=== PATIENT | male | born 1955 | race Caucasian/White ===

== ENCOUNTER 2020-02-20 07:13 | Day surgery (SDC) | payer MEDICARE ==
[~2020-02-20] VITALS: Ht 182.9 cm; Wt 90.7 kg
--- NOTE | 2020-02-20 06:46 | PREOP HP ---
DATE OF SERVICE: 02/20/2020 PREOPERATIVE HISTORY AND PHYSICAL DATE OF SURGERY: 02/20/2020 HISTORY OF PRESENT ILLNESS: The patient is a pleasant 64-year-old who is having difficulty with low back pain and pain that radiates primarily to his left buttock, posterior thigh and leg. He notes numbness in his left foot. This has been a problem for many years, but became severe a few months ago. He rates his pain as a 10/10 with walking. Lying on his left side helps him and he says that he has laid on his left hip so much that he began to notice skin breakdown. He says when he takes Gallitzin and morphine, it can help him some. He has had 3 epidural steroid injections since October without benefit. He does not notice numbness or weakness, only pain. PAST MEDICAL HISTORY: Gout and hypertension. PAST SURGICAL HISTORY: He denies any past surgical history. FAMILY HISTORY: He has a family history of cancer. SOCIAL HISTORY: He is employed as a welder assistant. He is . Denies substance abuse. Denies tobacco use. Former smoker. ALLERGIES: PENICILLIN. CURRENT MEDICATIONS: Gallitzin, morphine, gabapentin, chlorzoxazone, losartan, potassium, metoprolol, amlodipine, hydrochloric acid, fenofibrate and ibuprofen. REVIEW OF SYSTEMS: A 12-point review of systems was obtained and is noncontributory except that mentioned above. PHYSICAL EXAMINATION: NEUROSURGERY EXAMINATION: GENERAL APPEARANCE: Alert, pleasant, no acute distress. HEAD: Normocephalic and atraumatic. SKIN: Warm and dry. MUSCULOSKELETAL: Lumbar paraspinal muscle bulk is normal, restricted range of motion of the lumbar spine, [id number] tenderness of the lumbar spine with palpation, normal range of motion of the lower extremities bilaterally. EXTREMITIES: No clubbing, cyanosis or edema. NEUROLOGIC: Alert and oriented x 3. Normal recent and remote memory. Strength 5/5 in bilateral lower extremities. Sensory is intact to light touch in bilateral lower extremities. Reflexes are present and symmetric in the lower extremities bilaterally. Markedly positive straight leg raising on the left, negative straight leg raising on the right. He is using a walker to help with gait. IMAGING DATA: I reviewed a recent lumbar MRI scan. There is disk bulging and lateral stenosis at L3-L4 and L4-L5. At L5-S1, there is a large left disc herniation, which is posteriorly deviating and compressing the left S1 nerve root. ASSESSMENT/ PLAN: The patient has a large HNP at L5-S1 on the left, which is interfering with all of his activities. I explained to him that surgery would not help him with many of his back issues, but should certainly help him with his severe left-sided back, buttock, and posterior thigh and leg pain. This is by far the most significance of his pain. I outlined the surgery and the risks and expected postoperative course. He would like to go ahead. We will make the arrangements. CARISSA GARCES MD DR: RONALD/dionte JOB#: [id number] / [id number] MIGUE
[~2020-02-20 07:13] MED LIST: AMLO10TA8 PO; BACITRACIN 50,000 UNIT in IV NORMAL SALINE 1000ML BAG 1,000 ML IRR ONE; BUPIVACAINE-EPI 0.5%-1:200000 MPF 30 ML VIAL. ONE; FENO145T3 PO; GABA600T7 PO; GELATIN SPONGE SIZE 100. ONE; HYDROmorphone 2 MG/ML VIAL IV PRN; IV RINGERS,LACTATED 1000ML 1,000 ML IV SCH; KETOROLAC 60 MG/2 ML VIAL. ONE; LIDOCAINE 1% PF 2 ML VIAL. ID PRN; LOSA100T14 PO; METO100T7 PO; MORPHINE SULFATE 2 MG/ML VIAL. IV PRN; ONDANSETRON PF 4 MG/2 ML VIAL. IV PRN; OXYC1TAB15 PO; PROCHLORPERAZINE 10 MG/2 ML VIAL. IV PRN; THROMBIN TOPICAL 20,000 UNIT SPRAY.SYRN KIT TP ONE; fentaNYL PF VIAL 100 MCG/2 ML VIAL IV PRN
[2020-02-20] MEDS ORDERED: REMIFENTANIL 2 MG VIAL. IV ONE (07:37)
[2020-02-20] MEDS ORDERED: ROCURONIUM 50 MG/5 ML VIAL. ONE (07:37)
[2020-02-20] MEDS ORDERED: fentaNYL PF VIAL 100 MCG/2 ML VIAL ONE ×2 (07:37→11:28)
[2020-02-20] MEDS ORDERED: PROPOFOL 10 MG/ML (20ML) VIAL. IV ONE (07:37)
[2020-02-20] MEDS ORDERED: PROPOFOL 50 ML IV ONE (07:37)
[2020-02-20] MEDS ORDERED: SUCCINYLCHOLINE 200 MG/10 ML VIAL. ONE (07:37)
[2020-02-20] MEDS ORDERED: LIDOCAINE 2% PF 5 ML VIAL. ONE (07:37)
[2020-02-20] MEDS ORDERED: 0.9 % SODIUM CHLORIDE 20 ML VIAL. IJ ONE (07:38)
[2020-02-20] MEDS ORDERED: PHENYLEPHRINE in 0.9% NACL PF 1 MG/10 ML SYRINGE. IV ONE (09:27)
[2020-02-20] MEDS ORDERED: DESFLURANE 61 TO 120 MINUTES IH ONE (09:33)
[2020-02-20] MEDS ORDERED: DOCU-109 PO (09:34)
[2020-02-20] MEDS ORDERED: METH-38 PO (09:34)
--- NOTE | 2020-02-20 09:37 | DISCH ---
DISCHARGE INSTRUCTIONS Condition on Discharge Condition on Discharge: Stable Activity After Discharge Activity Instructions for Disc: Resume previous activity, Activity as tolerated Other activity instructions: no driving for a week Lifting Instructions after Dis: No heavy lifting, No pulling or pushing, Do not lift >10 pounds Diet after Discharge Additional Diet Restrictions: resume home diet Wound Incision Care Wound/Incision Care: Ice to area for comfort, Other, see below Other wound/incision instructi: may remove dressing in 48 hours if dry then may shower, no soaking Contacting the after DC Call your doctor for: Concerns you may have Follow-Up Follow up with: Dr. Garces's nurse in 2 weeks [phone] CARISSA GARCES MD Feb 20, 2020 09:37
[2020-02-20] MEDS ORDERED: ePHEDrine PF IN SALINE 50 MG/10 ML SYRINGE. IV ONE (10:24)
[2020-02-20] MEDS ORDERED: GLYCOPYRROLATE 1 MG/5 ML VIAL. ONE (10:24)
[2020-02-20] MEDS: fentaNYL PF VIAL 100 MCG/2 ML VIAL IV PRN ×2 (11:09→11:43)
[2020-02-20] MEDS ORDERED: oxyCODONE/APAP 5/325 1 TAB TABLET PO ONE ×2 (11:30)
--- NOTE | 2020-02-20 11:51 | OP ---
DATE OF SURGERY: 02/20/2020 PREOPERATIVE DIAGNOSES: Herniated lumbar disc, L5-S1 left with left lumbar radiculopathy. POSTOPERATIVE DIAGNOSES: Herniated lumbar disc, L5-S1 left with left lumbar radiculopathy. OPERATION PERFORMED: Hemilaminotomy and microdiscectomy L5-S1, left. The operation was done with EMG monitoring, SSEP monitoring, fluoroscopy, microscopic dissection. SURGEON: Jonathan Garces M.D. TAPE FOLDING MACHINE OPERATOR: YAJAIRA Zarco assisted with the surgery. She assisted with the exposure, the microdiscectomy as well as the closure. OPERATIVE INDICATIONS: The patient is a pleasant 64-year-old who developed intractable back and left leg pain, which failed conservative measures. He had a large herniated disc at L5-S1 on the left with compression of the left S1 nerve root. I recommended lumbar microsurgery. I spoke with him about the surgery, the risks, technique and the expected postoperative course and he wished to go ahead. DESCRIPTION OF PROCEDURE: Following general endotracheal anesthesia, the patient was positioned prone on the Zenon table. Lumbar region prepped and draped in standard fashion. LLUVIA hose and AV impulse boots were applied for DVT prophylaxis. The microscope was draped. Fluoroscopy was draped and brought into field. Monitoring was established. Ancef 2 grams was given less than 1 hour prior to initiation of the surgery. Using fluoroscopic guidance, a midline posterior incision was made, dissected down through subcutaneous tissue, reflected the paraspinal muscles, placed a [place]ow micro disc retractor, brought in the microscope. Using the high speed air drill, I burred down a generous hemilaminotomy and then trimmed away thickened ligamentum flavum, exposing the exiting S1 root. I gently retracted it medially and beneath the root, there was a large subligamentous disc herniation. I gently opened the ligament with a #11 blade and removed the herniated portion, there was an opening into the disc space. I followed this down with the Wilfredo pituitary and performed a discectomy with pituitary rongeurs. I then irrigated copiously, explored carefully. There were no retained fragments. The root was now quite free. I closed the wound with absorbable suture and skin was closed with 4-0 subcuticular stitch, after copious irrigation and excellent hemostasis. I was quite pleased with the surgery. JONATHAN Liss GARCES MD DR: RONALD/dionte JOB#: [id number] / [id number] MIGUE
[2020-02-20 11:55] VITALS: BP 134/78
--- NOTE | 2020-02-23 16:06 | PATHOLOGY ---
[facility] Accession Number: [id number] . 01 Material submitted: . vertebral column - LUMBAR DECOMPRESSION AND DISC . 01 Clinical history: . Lumbar herniated disc with radiculopathy . 02 Diagnosis: Segments of fibrocartilaginous and fibroadipose tissue and bone, lumbar decompression and disc: - Degenerative changes of fibrocartilaginous tissue. ([facility] 02/23/2020) [facility] 02/23/2020 1403 Local . 02 Comment: There is no evidence of an acute inflammatory process or malignancy. ([facility] 02/23/2020) . 02 Electronically signed: . Ramsey Adan MD, Pathologist NPI- [id number] . 01 Gross description: . The specimen is received in formalin, labeled "Rajat Licona, lumbar decompression and disc". Received are multiple segments of pink-martins, gritty tissue admixed with small fragments of bone measuring 3.8 x 3.5 x 0.7 cm in aggregate dimensions. The specimen is submitted representatively in cassette A1, following decalcification. ([facility]; 02/20/2020) QA/QA 02/20/2020 1611 Local . 02 Pathologist provided ICD-10: M99.73, M54.10 . 02 CPT . 188871, 354604 Specimen Comment: A courtesy copy of this report has been sent to [phone] Specimen Comment: [id number] Specimen Comment: Report sent to / DR TERRELL Performed at: 01 [facility] [address], [place], [place] [id number] MD Julián Elise MD Phone: [phone] Performed at: 02 [facility] [address] [place], [place] [id number] MD Ramsey Adan MD Phone: [phone]
== END 2020-02-20 13:06 | disposition home or self-care (01) ==
LOC: SURG 07:13
PROVIDERS: ATTEND Neurological Surgery
DX: M51.16 Intervertebral disc disorders with radiculopathy, lumbar region (principal); Z88.0 Allergy status to penicillin; Z87.891 Personal history of nicotine dependence; Z79.899 Other long term (current) drug therapy
CPT/HCPCS: 63030; 88304; 88311; 97161; J0330; J0696; J1885; J2370; J2704; J3010; J3490; J7030; J7120; 76000; J0690

== ENCOUNTER 2020-04-22 08:37 | Day surgery (SDC) | payer MEDICARE ==
[~2020-04-22] VITALS: Ht 182.9 cm; Wt 79.4 kg
[~2020-04-22 08:37] MED LIST changes: +ASPI-630 PO; +DOCU-109 PO; +IBUP-1060 PO; +METH-38 PO
[2020-04-22] MEDS ORDERED: MIDAZOLAM HCL/PF 2 MG/2 ML VIAL. ONE (09:38)
[2020-04-22] MEDS ORDERED: fentaNYL PF VIAL 100 MCG/2 ML VIAL ONE ×2 (09:38→14:26)
[2020-04-22] MEDS ORDERED: LIDOCAINE 2% PF 5 ML VIAL. ONE (09:39)
[2020-04-22] MEDS ORDERED: DEXAMETHASONE SOD PHOS 20 MG/5 ML VIAL. ONE (09:39)
[2020-04-22] MEDS ORDERED: PROPOFOL 50 ML IV ONE ×2 (09:39→12:42)
[2020-04-22] MEDS ORDERED: REMIFENTANIL 2 MG VIAL. IV ONE (09:39)
[2020-04-22] MEDS ORDERED: PROPOFOL 10 MG/ML (20ML) VIAL. IV ONE (09:39)
[2020-04-22] MEDS ORDERED: ONDANSETRON PF 4 MG/2 ML VIAL. ONE (09:40)
[2020-04-22] MEDS ORDERED: ROCURONIUM 50 MG/5 ML VIAL. ONE (09:46)
[2020-04-22] MEDS ORDERED: DESFLURANE > 120 MINUTES IH ONE ×2 (09:47→11:49)
[2020-04-22] MEDS ORDERED: ePHEDrine PF IN SALINE 50 MG/10 ML SYRINGE. IV ONE (12:07)
[2020-04-22] MEDS ORDERED: NEOSTIGMINE METHYLSULFATE 5 MG/5 ML SYRINGE. ONE (13:58)
[2020-04-22] MEDS ORDERED: GLYCOPYRROLATE 1 MG/5 ML VIAL. ONE (13:58)
[2020-04-22] MEDS ORDERED: METH-38 PO (14:07)
--- NOTE | 2020-04-22 14:10 | DISCH ---
DISCHARGE INSTRUCTIONS Condition on Discharge Condition on Discharge: Stable Activity After Discharge Activity Instructions for Disc: Resume previous activity, Activity as tolerated Bathing Instructions: Shower-keep dressing dry, No Tub Bath until see Lifting Instructions after Dis: No heavy lifting, No pulling or pushing, Do not lift >10 pounds Diet after Discharge Additional Diet Restrictions: resume home diet Wound Incision Care Wound/Incision Care: Ice to area for comfort, Other, see below Other wound/incision instructi: may remove dressing in 48 hours if dry then may shower, no soaking Contacting the after DC Call your doctor for: Concerns you may have Follow-Up Follow up with: Dr. Garces's nurse in 2 weeks [phone] CARISSA GARCES MD Apr 22, 2020 14:10
[2020-04-22] MEDS: fentaNYL PF VIAL 100 MCG/2 ML VIAL IV PRN ×2 (14:30→14:51)
[2020-04-22] MEDS ORDERED: oxyCODONE/APAP 5/325 1 TAB TABLET PO ONE ×2 (15:00)
[2020-04-22 15:10] VITALS: BP 137/55
--- NOTE | 2020-04-22 15:31 | OP ---
DATE OF SURGERY: 04/22/2020 PREOPERATIVE DIAGNOSIS: Herniated lumbar disc, recurrent, L5-S1, left. POSTOPERATIVE DIAGNOSIS: Herniated lumbar disc, recurrent, L5-S1, left. OPERATIONS PERFORMED: Hemilaminotomy and microdiscectomy, reoperation, L5-S1, left. The operation was done with EMG monitoring, SSEP monitoring, fluoroscopy and microscopic dissection. FINDINGS: Sequestered disc fragment inferiorly placed, compressing the left S1 nerve root. SURGEON: Jonathan Garces M.D. UNIVERSITY ARCHIVIST: YAJAIRA Zarco, who assisted with all aspects of the surgery. OPERATIVE INDICATIONS: The patient is a pleasant 64-year-old man who in the recent past underwent lumbar microsurgery and initially did well, but then developed recurrent pain. On imaging studies, there was a new inferior disc herniation emanating from the L5-S1 disc space on the left and I recommended lumbar microsurgery. I spoke with him about the surgery, the risks, technique and expected postoperative course and he wished for me to go ahead. DESCRIPTION OF PROCEDURE: Following general endotracheal anesthesia, the patient was positioned prone on the Zenon table. Lumbar region was prepped and draped in standard fashion. LLUVIA hose and AV impulse boots were applied for DVT prophylaxis. The microscope was draped. Fluoroscopy was draped and brought into the field. Monitoring was established. Ancef 2 grams was given less than 1 hour prior to initiation of the surgery. Using fluoroscopic guidance, a midline incision was made directly over the L5-S1 interspace. I dissected down through the skin and subcutaneous tissue, reflected the paraspinal muscles and placed a microdisk retractor. I brought in the microscope and visualized the edges of the previous laminotomy. I continued this superiorly, laterally and inferiorly. I trimmed away thickened bone opening up the lateral recess further and I followed the nerve inferiorly slightly farther and created a larger foraminotomy. I then worked medially and could easily visualize the dura and the exiting root. I gently retracted the root medially that was under some pressure and there appeared to be a sequestered disc fragment beneath it. I worked and freed the nerve root and the dural sac from the scar. I gently placed a nerve root retractor and then was easily able to enter into the disc space and removed disc fragments. I then worked inferiorly and cut through the sequestered disc fragment. I opened up the sequestration and pulled back a single moderate sized herniated disc, which at that point completely alleviated any nerve root pressure. The root was then free. I irrigated copiously. I closed the wound then in layers with absorbable suture. The skin was closed with 4-0 subcuticular stitch. I felt the surgery went very well. JONATHAN GARCES MD DR: RONALD/dionte JOB#: [id number] / [id number] MIGUE
--- NOTE | 2020-04-23 10:16 | PREOP HP ---
DATE OF SERVICE: 04/22/2020 PREOPERATIVE HISTORY AND PHYSICAL DATE OF SURGERY: 04/22/2020. HISTORY OF PRESENT ILLNESS: The patient is a pleasant 64-year-old who underwent microsurgery at L5-S1 on the left in January. During the postoperative period, he developed recurrent pain. The pain is primarily on the left side in the left buttock and radiates into his posterior thigh and leg. He says sitting is very uncomfortable for him. He rates his pain as a 5-6/10. There is no weakness. He has had no difficulty in his right lower extremity. PAST MEDICAL HISTORY: Gout, hypertension. PAST SURGICAL HISTORY: Lumbar microdiskectomy at L5-S1, left, on 02/20/2020. FAMILY HISTORY: Cancer. SOCIAL HISTORY: He is employed as a fitter welder. . Denies substance abuse. Denies tobacco use. Former smoker. ALLERGIES: TO PENICILLIN. CURRENT MEDICATIONS: Percocet, gabapentin, chlorzoxazone, losartan, metoprolol, amlodipine, hydrochloric acid, fenofibrate and ibuprofen. REVIEW OF SYSTEMS: A 12-point review of systems was obtained and is noncontributory except of that mentioned above. PHYSICAL EXAMINATION: NEUROSURGERY EXAMINATION: GENERAL APPEARANCE: Alert, pleasant, no acute distress. HEAD: Normocephalic and atraumatic. SKIN: Warm and dry. MUSCULOSKELETAL: Lumbar incision present, well healed. Lumbar paraspinal muscle bulk is normal, restricted range of motion of the lumbar spine, [id number]-uvimkgga tenderness of the lower lumbar spine with palpation, normal range of motion of the lower extremities bilaterally. EXTREMITIES: No clubbing, cyanosis, or edema. NEUROLOGIC: Alert and oriented x 3, normal recent and remote memory. Strength 5/5 in bilateral lower extremities. Sensory was intact to light touch in lower extremities bilaterally except for his left heel and lateral surface of the left foot, which have decreased sensation to light touch. Reflexes were trace and symmetric in bilateral lower extremities, except for an absent left ankle jerk. Markedly positive straight leg raise on the left, negative straight leg raising on the right. IMAGING: I reviewed lumbar MRI scan from 03/23/2020. On that study, postoperative changes on the left are seen at L5-S1. There is a 6 mm T1 and T2 hypointense lesion in the ventral epidural space on the posterior cortex of the S1 vertebral body. There continues to be significant foraminal narrowing on the left at this level, although it is slightly decreased from preop. ASSESSMENT: Intervertebral disc disorders with radiculopathy, lumbosacral region. PLAN: The patient has a recurrent disc herniation at L5-S1. Additionally, there is some residual foraminal narrowing present at that level. I am recommending lumbar microsurgery to re-operate at that level and that he is in extreme pain with marked radicular findings. I did discuss this with him including the technique, risks, and expected postoperative course. He understands. He would like to proceed. We will make the arrangements. CARISSA GARCES MD DR: RONALD/dionte JOB#: [id number] / [id number] MIGUE
--- NOTE | 2020-04-26 15:08 | PATHOLOGY ---
[facility] Accession Number: [id number] . 01 Material submitted: . vertebral column - LUMBAR DISC AND DECOMPRESSION . 01 Clinical history: . RECURRENT LUMBAR HERNIATED DISC WITH RADICULOPATHY . 02 Diagnosis: Segments of fibrocartilaginous tissue and bone, lumbar disc and decompression: - Degenerative changes of fibrocartilaginous tissue with focal neovascularization. . ([facility]; 04/26/2020) [facility] 04/26/2020 1125 Local . 02 Comment: There is no evidence of an acute inflammatory process or malignancy. . ([facility]:mm; 04/26/2020) . 02 Electronically signed: . Ramsey Adan MD, Pathologist NPI- [id number] . 01 Gross description: . The specimen is received in formalin, labeled "Rajat Licona, lumbar disc and decompression". Received are multiple segments of white-martins, fibrous, gritty tissue admixed with minute fragments of bone measuring 2.8 x 2.6 x 0.4 cm in aggregate dimensions. The specimen is filtered entirely and submitted in cassette A1, following decalcification. ([facility]; 04/23/2020) QAC/QA 04/26/2020 1125 Local . 02 Pathologist provided ICD-10: M51.36 . 02 CPT . 644967, [id number] Specimen Comment: A courtesy copy of this report has been sent to [phone] Specimen Comment: [id number] Specimen Comment: Report sent to / DR TERRELL Performed at: 01 [facility] [id number], [place], [place] [id number] MD Julián Elise MD Phone: [phone] Performed at: 02 [facility] [address] [place], [place] [id number] MD Ramsey Adan MD Phone: [phone]
== END 2020-04-22 16:30 | disposition home or self-care (01) ==
LOC: SURG 08:37
PROVIDERS: ATTEND Neurological Surgery
DX: M51.26 Other intervertebral disc displacement, lumbar region (principal); M10.9 Gout, unspecified; I10 Essential (primary) hypertension; F17.210 Nicotine dependence, cigarettes, uncomplicated; Z88.0 Allergy status to penicillin; Z79.82 Long term (current) use of aspirin; Z79.899 Other long term (current) drug therapy; Z72.89 Other problems related to lifestyle
CPT/HCPCS: 63042; 88304; 88311; 97116; 97162; 97530; A7015; J0690; J1100; J1885; J2405; J2704; J2710; J3010; J3490; J7030; J7120; 76000; J2250

== ENCOUNTER → 2021-03-01 | Outpatient (CLI) | payer MEDICARE ==
[~2021-03-01] MED LIST changes: +AMLO-187 PO; -AMLO10TA8 PO; -BACITRACIN 50,000 UNIT in IV NORMAL SALINE 1000ML BAG 1,000 ML IRR ONE; -BUPIVACAINE-EPI 0.5%-1:200000 MPF 30 ML VIAL. ONE; +GADOTERATE 5 MMOL/10ML VIAL. IVP ONE; -GELATIN SPONGE SIZE 100. ONE; -HYDROmorphone 2 MG/ML VIAL IV PRN; -IV RINGERS,LACTATED 1000ML 1,000 ML IV SCH; -KETOROLAC 60 MG/2 ML VIAL. ONE; -LIDOCAINE 1% PF 2 ML VIAL. ID PRN; -MORPHINE SULFATE 2 MG/ML VIAL. IV PRN; -ONDANSETRON PF 4 MG/2 ML VIAL. IV PRN; -PROCHLORPERAZINE 10 MG/2 ML VIAL. IV PRN; -THROMBIN TOPICAL 20,000 UNIT SPRAY.SYRN KIT TP ONE; -fentaNYL PF VIAL 100 MCG/2 ML VIAL IV PRN
--- NOTE | 2021-03-01 12:03 | RAD ---
MRI of the lumbar spine without and with contrast 03/01/2021 CLINICAL HISTORY: Lumbar radiculopathy. TECHNIQUE: Unenhanced T1-weighted and T2-weighted sagittal and axial and inversion recovery sagittal images of the lumbar spine were obtained. After the intravenous administration 20 cc of Clariscan, en hanced fat saturated T1-weighted sagittal and axial images of the lumbar spine were obtained. FINDINGS: Minimal S-shaped curvature of the thoracolumbar spine is seen. Degenerative signal changes are seen involving all of the disks of the lumbar spine. Hemangiomas are seen scattered throughout th e lower thoracic and lumbar vertebral bodies. These measure 3 mm to 1.5 cm in size.Degenerative signa l changes are seen within the marrow surrounding these discs. The conus medullaris is normal morpholo gy, position, and signal characteristics. At the L1-2 disc space there is a minimal generalized disc bulge. Degenerative changes are seen invol ving the facet joints bilaterally. These findings do not result in significant central spinal canal o r neural foraminal stenosis. At the L2-3 disc space there is a mild generalized disc bulge. Degenerative changes are seen involvin g the facet joints bilaterally. There are small facet joint effusions bilaterally. There is mild liga mentum flavum hypertrophy bilaterally. These findings when combined do not result in significant cent ral spinal canal or neural foraminal stenosis. At the L3-4 disc space there is a moderate generalized disc bulge. Degenerative changes are seen invo lving the facet joints bilaterally. There is moderate ligamentum flavum hypertrophy bilaterally. Ther e are small facet joint effusions bilaterally. There is prominence of the posterior epidural fat. The se findings when combined result in mild to moderate central spinal canal stenosis. No neural foramin al stenosis is seen. At the L4-5 disc space there is a mild to moderate generalized disc bulge. This is eccentric to the r ight. Degenerative changes are seen involving the facet joints bilaterally. There is mild ligamentum flavum hypertrophy bilaterally. These findings when combined result in mild central spinal canal sten osis. Mild right greater than left neural foraminal stenosis is seen. At the L5-S1 disc space, the patient is post left hemilaminotomy. There is a mild to moderate general ized disc bulge. Degenerative changes are seen involving the facet joints bilaterally. Enhancement co nsistent with epidural scarring is seen to the left of the thecal sac. Epidural scarring surrounds th e left S1 nerve root. These findings do not result in significant central spinal canal stenosis. Mode rate left neural foraminal stenosis is seen. The right neural foramen is patent. IMPRESSION: 1. Post left hemilaminotomy at L5-S1. 2. The changes of degenerative disc disease are seen throughout the lumbar spine. These findings resu lts in mild to moderate central spinal canal stenosis at L3-4 and mild central spinal canal stenosis at L4-5. Mild right greater than left neural foraminal stenosis is seen at L4-5. Moderate left neural foraminal stenosis is seen at L5-S1. Electronically signed by: Won Lechuga MD (03/01/2021 12:00 PM) [id number]
--- NOTE | 2021-03-01 16:26 | RAD ---
XR L-SPINE BENDING ONLY 2-3 VIEWS History: Lumbar radiculopathy Comparison: MRI lumbar spine 03/01/2021 Technique: Lateral flexion and extension views of the lumbar spine. Findings: There are 5 non-rib bearing lumbar vertebral segments. There is no evidence of fracture. Mild grade 1 retrolisthesis of L2 on L3 and L3 on L4 without significant change in flexion and extens ion positioning. No destructive osseous lesions are seen. Lower lumbar facet hypertrophic degenerative change. Moderate disc space narrowing L4-L5 and L5-S1. Endplate osteophytes throughout the lumbar spine. Atherosclerotic calcifications of the aorta. IMPRESSION: 1. Degenerative disc and facet disease of the lower lumbar spine. No abnormal motion with flexion an d extension. Electronically signed by: Esau Villalobos MD (03/01/2021 4:24 PM) [id number]
== END ==
LOC: MRI 09:27
PROVIDERS: ATTEND Neurological Surgery
DX: M47.27 Other spondylosis with radiculopathy, lumbosacral region (principal); M51.16 Intervertebral disc disorders with radiculopathy, lumbar region; M48.07 Spinal stenosis, lumbosacral region; M25.78 Osteophyte, vertebrae; D18.00 Hemangioma unspecified site; M25.48 Effusion, other site; I70.0 Atherosclerosis of aorta
CPT/HCPCS: 72120; 72158; A9575